=== PATIENT | male | born 1965 | race Caucasian/White ===

== ENCOUNTER 2021-10-20 07:22 | Outpatient (CLI) | payer OTHER | END 2021-10-20 23:59 | disposition home or self-care (01) | LOC: RAD 07:22 | PROVIDERS: ATTEND Chiropractor | DX: S62.501A Fracture of unspecified phalanx of right thumb, initial encounter for closed fracture (principal); X58.XXXA Exposure to other specified factors, initial encounter; Y93.89 Activity, other specified; Y92.89 Other specified places as the place of occurrence of the external cause; Y99.8 Other external cause status | CPT/HCPCS: 73130 ==

== ENCOUNTER 2022-02-04 18:29 | Emergency (ER) | payer OTHER ==
[~2022-02-04] VITALS: Ht 172.7 cm; Wt 80.5 kg
[2022-02-04 18:52] VITALS: BP 160/105
[2022-02-04 19:28] LABS: BASOPHILS # (AUTO) 0.1 X10'3 (0-0.2); BASOPHILS % (AUTO) 1.1 % (0-1); EOSINOPHILS % (AUTO) 0.5 % (0-6); HEMATOCRIT 38.1 % (42.0-52.0); HEMOGLOBIN 13.7 g/dl (14.0-17.9); LYMPHOCYTES % (AUTO) 35.7 % (21-51); MEAN CORPUSCULAR HEMOGLOBIN 35.1 PG (27.0-31.0); MEAN CORPUSCULAR HGB CONC 35.8 g/dL (33.0-36.5); MEAN CORPUSCULAR VOLUME 97.9 FL (78-98); MEAN PLATELET VOLUME 6.2 FL (7.4-10.4); MONOCYTES # (AUTO) 0.8 X10'3 (0-0.9); MONOCYTES % (AUTO) 13.6 % (2-12); NEUTROPHILS # (AUTO) 2.8 X10'3 (1.8-7.7); NEUTROPHILS % (AUTO) 49.1 % (42-75); PLATELET COUNT 445 X10'3 (140-440); RED CELL DISTRIBUTION WIDTH 14.5 % (11.5-14.5); WHITE BLOOD COUNT 5.7 X10'3 (4.5-11.0)
[2022-02-04 19:35] LABS: ALBUMIN 3.4 G/DL (3.4-5.0); ALBUMIN/GLOBULIN RATIO 0.8 (1.1-1.5); ALKALINE PHOSPHATASE 103 IU/L (46-116); BILIRUBIN,TOTAL 0.4 MG/DL (0.1-1.0); BLOOD UREA NITROGEN 10 MG/DL (7-18); BUN/CREATININE RATIO 11.8 (5.4-32.0); CALCIUM 8.2 MG/DL (8.5-10.1); CHLORIDE 99 MMOL/L (99-107); CREATININE 0.85 MG/DL (0.60-1.10); MAGNESIUM 2.2 MG/DL (1.5-2.4); TOTAL CARBON DIOXIDE 23.9 MMOL/L (24-32); TOTAL PROTEIN 7.7 G/DL (6.4-8.2); eGFR > 90 ML/MIN
[2022-02-04 20:03] LABS: ALANINE AMINOTRANSFERASE 103 U/L (12-78); ANION GAP 12 (8-16); ASPARTATE AMINO TRANSFERASE 67 U/L (10-37); GLUCOSE 110 MG/DL (70-104); POTASSIUM 4.3 MMOL/L (3.5-5.1); SODIUM 135 MMOL/L (135-145)
[2022-02-04] MEDS ORDERED: LIDOcaine Viscous 15ml cup MM PRN (20:05)
[2022-02-04] MEDS ORDERED: mag hydrox/Alum hydrox/simeth 30ml oral suspension PO ONE (20:05)
[2022-02-04] MEDS ORDERED: ketorolac trometh inj. 60 MG/2 ML VIAL IM ONE (20:45)
== END 2022-02-04 21:08 | disposition home or self-care (01) ==
LOC: ER 18:29
DX: R07.89 Other chest pain (principal)
CPT/HCPCS: 36415; 71045; 80053; 83735; 83880; 84484; 85025; 93005; 96372; 99285; J1885

== ENCOUNTER 2022-11-06 17:50 | Emergency (ER) | payer OTHER ==
[~2022-11-06] VITALS: Ht 172.7 cm; Wt 88.6 kg
[2022-11-06 17:53] VITALS: TEMP 97.8
[2022-11-06] MEDS ORDERED: normal saline 1000ml 1,000 ML IV ONE ×2 (18:05→19:20)
[2022-11-06] MEDS ORDERED: ondansetron/PF 4mg/2ml inj IV ONE (18:05)
[2022-11-06] MEDS ORDERED: proCHLORperazine 10 MG/2 ml inj IV ONE (18:05)
[2022-11-06 18:31] LABS: BASOPHILS % (AUTO) 0.1 % (0-1); EOSINOPHILS % (AUTO) 0 % (0-6); HEMATOCRIT 30.7 % (42.0-52.0); HEMOGLOBIN 10.4 g/dl (14.0-17.9); LYMPHOCYTES # (AUTO) 0.7 X10'3 (1.1-4.8); LYMPHOCYTES % (AUTO) 6.1 % (21-51); MEAN CORPUSCULAR HEMOGLOBIN 33.2 PG (27.0-31.0); MEAN CORPUSCULAR HGB CONC 33.9 g/dL (33.0-36.5); MEAN CORPUSCULAR VOLUME 97.9 FL (78-98); MEAN PLATELET VOLUME 7.1 FL (7.4-10.4); MONOCYTES # (AUTO) 0.2 X10'3 (0-0.9); NEUTROPHILS # (AUTO) 11.1 X10'3 (1.8-7.7); NEUTROPHILS % (AUTO) 91.8 % (42-75); PLATELET COUNT 234 X10'3 (140-440); RED BLOOD COUNT 3.13 X10'6 (4.70-6.10); RED CELL DISTRIBUTION WIDTH 13.4 % (11.5-14.5); WHITE BLOOD COUNT 12.1 X10'3 (4.5-11.0)
[2022-11-06 18:46] LABS: ALANINE AMINOTRANSFERASE 18 U/L (12-78); ALBUMIN/GLOBULIN RATIO 1.1 (1.1-1.5); ALKALINE PHOSPHATASE 42 IU/L (46-116); ANION GAP 11 (8-16); ASPARTATE AMINO TRANSFERASE 13 U/L (10-37); BILIRUBIN,TOTAL 0.4 MG/DL (0.1-1.0); BLOOD UREA NITROGEN 12 MG/DL (7-18); BUN/CREATININE RATIO 10.1 (10.0-20.0); CALCIUM 7.6 MG/DL (8.5-10.1); CHLORIDE 113 MMOL/L (99-107); CREATININE 1.19 MG/DL (0.60-1.10); GLUCOSE 114 MG/DL (70-104); SODIUM 144 MMOL/L (135-145); TOTAL CARBON DIOXIDE 20.3 MMOL/L (24-32); TOTAL PROTEIN 5.8 G/DL (6.4-8.2); eGFR 63 ML/MIN
[2022-11-06 18:52] LABS: MAGNESIUM 1.8 MG/DL (1.5-2.4)
[2022-11-06] MEDS ORDERED: metoclopramide 5 mg/ml inj IV ONE (19:20)
[2022-11-06 19:46] LABS: ETHANOL 26 MG/DL (<10)
[2022-11-06] MEDS ORDERED: ONDA8TAB13 PO (21:00)
[2022-11-06 21:18] VITALS: BP 93/55; PULSE 84; RESP 18; O2SAT 98
== END 2022-11-06 21:20 | disposition home or self-care (01) ==
LOC: ER 17:52
DX: R11.2 Nausea with vomiting, unspecified (principal); R00.2 Palpitations
CPT/HCPCS: 36415; 71045; 80053; 80320; 83735; 83880; 84484; 85025; 85610; 93005; 96361; 96374; 96375; 99285; J0780; J2405; J2765; J7030

== ENCOUNTER 2023-06-17 19:41 | Emergency (ER) | payer OTHER ==
[~2023-06-17] VITALS: Ht 172.7 cm; Wt 75.0 kg
[~2023-06-17 19:41] MED LIST: ONDA8TAB13 PO
[2023-06-17 19:57] VITALS: TEMP 98
[2023-06-17 20:43] LABS: BASOPHILS % (AUTO) 0.1 % (0-1); EOSINOPHILS % (AUTO) 0 % (0-6); HEMATOCRIT 37.9 % (42.0-52.0); HEMOGLOBIN 13.4 g/dl (14.0-17.9); LYMPHOCYTES # (AUTO) 1.2 X10'3 (1.1-4.8); LYMPHOCYTES % (AUTO) 11.4 % (21-51); MEAN CORPUSCULAR HEMOGLOBIN 33.3 PG (27.0-31.0); MEAN CORPUSCULAR HGB CONC 35.5 g/dL (33.0-36.5); MEAN CORPUSCULAR VOLUME 93.9 FL (78-98); MEAN PLATELET VOLUME 6.9 FL (7.4-10.4); MONOCYTES % (AUTO) 9.6 % (2-12); NEUTROPHILS # (AUTO) 8.2 X10'3 (1.8-7.7); NEUTROPHILS % (AUTO) 78.9 % (42-75); PLATELET COUNT 266 X10'3 (140-440); RED BLOOD COUNT 4.03 X10'6 (4.70-6.10); RED CELL DISTRIBUTION WIDTH 13.2 % (11.5-14.5); WHITE BLOOD COUNT 10.4 X10'3 (4.5-11.0)
[2023-06-17 20:58] LABS: ALANINE AMINOTRANSFERASE 47 U/L (12-78); ALBUMIN 3.6 G/DL (3.4-5.0); ALBUMIN/GLOBULIN RATIO 0.9 (1.1-1.5); ALKALINE PHOSPHATASE 76 IU/L (46-116); ANION GAP 10 (8-16); ASPARTATE AMINO TRANSFERASE 47 U/L (10-37); BILIRUBIN,TOTAL 1.7 MG/DL (0.1-1.0); BLOOD UREA NITROGEN 8 MG/DL (7-18); BUN/CREATININE RATIO 11.1 (10.0-20.0); CALCIUM 8.5 MG/DL (8.5-10.1); CHLORIDE 84 MMOL/L (99-107); CREATININE 0.72 MG/DL (0.60-1.10); GLUCOSE 120 MG/DL (70-104); POTASSIUM 3.1 MMOL/L (3.5-5.1); SODIUM 121 MMOL/L (135-145); TOTAL CARBON DIOXIDE 26.9 MMOL/L (24-32); TOTAL PROTEIN 7.5 G/DL (6.4-8.2); eCRCL 108 ML/MIN; eGFR > 90 ML/MIN
[2023-06-17] MEDS: LIDOcaine Viscous 15ml cup MM ONE (20:58)
[2023-06-17] MEDS: mag hydrox/Alum hydrox/simeth 30ml oral suspension PO ONE (20:58)
[2023-06-17] MEDS: dicyclomine 10 MG capsule PO ONE (20:58)
[2023-06-17 21:06] LABS: LIPASE 33 U/L (16-77); PRO BRAIN NATRIURETIC PEPTIDE 246 PG/ML (0-125)
[2023-06-17 21:50] VITALS: BP 155/101; PULSE 75; RESP 17; O2SAT 96
[2023-06-17] MEDS ORDERED: DICY20TA17 PO (21:50)
[2023-06-17] MEDS ORDERED: OMEP40CA21 PO (21:50)
== END 2023-06-17 22:02 | disposition home or self-care (01) ==
LOC: ER 19:42
DX: R07.89 Other chest pain (principal); Z79.899 Other long term (current) drug therapy
CPT/HCPCS: 36415; 71045; 80053; 83690; 83880; 84484; 85025; 93005; 99285

== ENCOUNTER 2023-06-20 18:50 | Emergency (ER) | payer OTHER ==
[~2023-06-20] VITALS: Ht 172.7 cm; Wt 70.0 kg
[~2023-06-20 18:50] MED LIST changes: +DICY20TA17 PO; +OMEP40CA21 PO
[2023-06-20 23:31] VITALS: BP 128/84; PULSE 85; RESP 18; TEMP 97.8; O2SAT 98
== END 2023-06-20 23:35 | disposition home or self-care (01) ==
LOC: ER 18:54
DX: S00.83XA Contusion of other part of head, initial encounter (principal); F10.129 Alcohol abuse with intoxication, unspecified; Z79.2 Long term (current) use of antibiotics; Z79.899 Other long term (current) drug therapy; W19.XXXA Unspecified fall, initial encounter; Y93.89 Activity, other specified; Y92.89 Other specified places as the place of occurrence of the external cause; Y99.8 Other external cause status; Y90.9 Presence of alcohol in blood, level not specified
CPT/HCPCS: 70450; 99284

== ENCOUNTER 2023-06-21 10:51 | Emergency (ER) | payer OTHER ==
[~2023-06-21] VITALS: Ht 172.7 cm; Wt 69.7 kg
[2023-06-21 11:06] VITALS: BP 119/77; PULSE 99; RESP 18; TEMP 97.5; O2SAT 98
== END 2023-06-21 12:00 | disposition home or self-care (01) ==
LOC: ER 10:54
DX: S00.11XD Contusion of right eyelid and periocular area, subsequent encounter (principal); S00.83XD Contusion of other part of head, subsequent encounter; W18.39XD Other fall on same level, subsequent encounter; Z79.899 Other long term (current) drug therapy
CPT/HCPCS: 99281

== ENCOUNTER 2023-08-06 14:06 | Outpatient (CLI) | payer MEDICAID ==
[~2023-08-06 14:06] MED LIST changes: -OMEP40CA21 PO
== END 2023-08-06 23:59 | disposition home or self-care (01) ==
LOC: RAD 14:06
PROVIDERS: ATTEND Student in an Organized Health Care Education/Training Program
DX: M25.531 Pain in right wrist (principal)
CPT/HCPCS: 73110

== ENCOUNTER 2024-02-24 08:03 | Emergency (ER) | payer OTHER, MEDICAID ==
[~2024-02-24] VITALS: Ht 172.7 cm; Wt 70.3 kg
[~2024-02-24 08:03] MED LIST changes: +ONDA-245 PO; -ONDA8TAB13 PO
[2024-02-24] MEDS: ondansetron/PF 4mg/2ml inj IV ONE ×2 (08:49→11:12)
[2024-02-24] MEDS: LORazepam 2 mg/ml vial IV ONE ×3 (08:49→13:50)
[2024-02-24] MEDS: pantoprazole 40 MG vial IV ONE (08:50)
[2024-02-24] MEDS: mag hydrox/Alum hydrox/simeth 30ml oral suspension PO ONE (08:50)
[2024-02-24] MEDS: LIDOcaine 2% Viscous 15ml cup MM PRN (08:50)
[2024-02-24 08:53] LABS: BASOPHILS % (AUTO) 0.2 % (0-1); EOSINOPHILS % (AUTO) 0.2 % (0-6); HEMATOCRIT 37.3 % (42.0-52.0); HEMOGLOBIN 12.6 g/dl (14.0-17.9); LYMPHOCYTES # (AUTO) 0.3 X10'3 (1.1-4.8); LYMPHOCYTES % (AUTO) 5.6 % (21-51); MEAN CORPUSCULAR HGB CONC 33.8 g/dL (33.0-36.5); MEAN CORPUSCULAR VOLUME 100.6 FL (78-98); MEAN PLATELET VOLUME 7.1 FL (7.4-10.4); MONOCYTES # (AUTO) 0.4 X10'3 (0-0.9); MONOCYTES % (AUTO) 9.5 % (2-12); NEUTROPHILS # (AUTO) 3.8 X10'3 (1.8-7.7); NEUTROPHILS % (AUTO) 84.5 % (42-75); PLATELET COUNT 212 X10'3 (140-440); RED BLOOD COUNT 3.71 X10'6 (4.70-6.10); RED CELL DISTRIBUTION WIDTH 14.8 % (11.5-14.5); WHITE BLOOD COUNT 4.5 X10'3 (4.5-11.0)
[2024-02-24 09:08] LABS: ALANINE AMINOTRANSFERASE 94 U/L (12-78); ALBUMIN 3.2 G/DL (3.4-5.0); ALBUMIN/GLOBULIN RATIO 0.7 (1.1-1.5); ALKALINE PHOSPHATASE 89 IU/L (46-116); ANION GAP 13 (8-16); ASPARTATE AMINO TRANSFERASE 121 U/L (10-37); BILIRUBIN,TOTAL 0.3 MG/DL (0.1-1.0); BLOOD UREA NITROGEN 5 MG/DL (7-18); BUN/CREATININE RATIO 7.8 (10.0-20.0); CALCIUM 7.4 MG/DL (8.5-10.1); CHLORIDE 100 MMOL/L (99-107); CREATININE 0.64 MG/DL (0.60-1.10); GLUCOSE 123 MG/DL (70-104); POTASSIUM 3.7 MMOL/L (3.5-5.1); SODIUM 137 MMOL/L (135-145); TOTAL CARBON DIOXIDE 23.7 MMOL/L (24-32); TOTAL PROTEIN 7.5 G/DL (6.4-8.2); eCRCL 120 ML/MIN; eGFR > 90 ML/MIN
[2024-02-24 09:15] LABS: PRO BRAIN NATRIURETIC PEPTIDE < 30 PG/ML (0-125)
[2024-02-24] MEDS: normal saline 1000ML IV soln IVB ONE (11:04)
[2024-02-24] MEDS: chlordiazePOXIDE 25mg capsule PO ONE (11:04)
[2024-02-24 12:33] VITALS: TEMP 98.1
[2024-02-24] MEDS ORDERED: CHLO25CA10 PO (13:13)
[2024-02-24] MEDS ORDERED: ONDA-243 PO (13:13)
[2024-02-24] MEDS ORDERED: DICY10CA88 PO (13:13)
[2024-02-24] MEDS: LORazepam 1 MG tablet PO ONE (13:50)
[2024-02-24 14:00] VITALS: BP 156/83; PULSE 88; RESP 14; O2SAT 99
== END 2024-02-24 14:05 | disposition home or self-care (01) ==
LOC: ER 08:03
DX: R11.2 Nausea with vomiting, unspecified (principal); Z20.822 Contact with and (suspected) exposure to COVID-19; R19.7 Diarrhea, unspecified; F10.239 Alcohol dependence with withdrawal, unspecified; R07.89 Other chest pain; I10 Essential (primary) hypertension; K21.9 Gastro-esophageal reflux disease without esophagitis; Z79.899 Other long term (current) drug therapy
CPT/HCPCS: 36415; 71045; 80053; 83880; 84145; 84484; 85025; 87502; 87503; 87811; 93005; 96365; 96366; 96375; 96376; 99285; J2060; J2405; J2470; J7030

== ENCOUNTER 2024-02-24 16:21 | Emergency (ER) | payer OTHER, MEDICAID ==
[~2024-02-24] VITALS: Ht 175.3 cm; Wt 69.0 kg
[~2024-02-24 16:21] MED LIST changes: +CHLO25CA10 PO; +DICY10CA88 PO; +ONDA-243 PO
[2024-02-24 17:50] VITALS: BP 126/89; PULSE 89; RESP 14; O2SAT 94
[2024-02-24 19:18] VITALS: TEMP 98
== END 2024-02-24 19:19 | disposition home or self-care (01) ==
LOC: ER 16:22
DX: R42 Dizziness and giddiness (principal); R11.2 Nausea with vomiting, unspecified; I10 Essential (primary) hypertension; K21.9 Gastro-esophageal reflux disease without esophagitis; Z79.899 Other long term (current) drug therapy
CPT/HCPCS: 36415; 80320; 99284